=== PATIENT | female | born 1950 | race Caucasian/White ===

== ENCOUNTER 2016-05-22 14:52 | Day surgery (SDC) | payer OTHER ==
[~2016-05-22] VITALS: Ht 167.6 cm; Wt 58.6 kg
[~2016-05-22 14:52] MED LIST: ESTR1PAT13 TD; IBUP400T22 PO; METO25TA99 PO; PRAM0.5T3 PO; RIZA10TA26 PO
[2016-05-22 15:45] VITALS: BP 127/79; PULSE 53; RESP 16; O2SAT 98
[2016-05-22 15:50] VITALS: BP 124/78; PULSE 51; RESP 16; O2SAT 99
[2016-05-22 15:55] VITALS: BP 116/74; PULSE 56; RESP 16; O2SAT 98
--- NOTE | 2016-05-22 16:08 | NUR ---
Phlebotomy Patient arrived to unit. Labs drawn, HCT 42.6. 450ml blood drawn. Denies any reportable symptoms. Patient will call to schedule next appt. Left unit independently.
== END 2016-05-22 23:59 | disposition home or self-care (01) ==
LOC: MOCO 14:52
PROVIDERS: ATTEND Nurse Practitioner
DX: E83.119 Hemochromatosis, unspecified (principal)